=== PATIENT | female | born 1945 | race Caucasian/White ===

== ENCOUNTER 2021-11-02 11:34 | Emergency (ER) | payer OTHER, SELFPAY ==
[2021-11-02] VITALS (44 sets, daily range): BP systolic 91–135; BP diastolic 49–73; PULSE 54–68; RESP 11–23; TEMP 36.3; O2SAT 92–99
--- NOTE | 2021-11-02 11:30 | DI.RAD_ITS ---
Exam(s) XR CHEST 1V IN DI DEPT EXAM: XR CHEST 1V IN DI DEPT CLINICAL HISTORY: CVA/TIA TECHNIQUE: 2D digital imaging was performed of the chest. One image was obtained. An AP view was ob tained. COMPARISON: No exams were available for comparison FINDINGS: MEDIASTINUM: Normal. HEART: Normal. Status post CABG. PULMONARY VASCULATURE: Normal. LUNGS: No focal consolidating infiltrate. There is a rounded density projected over the posterior as pect of the right 9th rib. Its density is is suspicious for an old healed right rib fracture. Right rib films may be obtained for confirmation and to exclude a pulmonary nodule. PLEURAL SPACE: No pleural effusion or pneumothorax. BONE:Within normal limits for the patient's age. Sternal wires are in place. OTHER FINDINGS:Normal. IMPRESSION: No acute pulmonary findings. Incidental Findings DATA REPOSITORY: RADIATION DOSE DELIVERED:
--- NOTE | 2021-11-02 11:30 | RT.EKG_ITS ---
APPROVED REPORT Exam: Resting ECG Reason for Exam: CVA/TIA Patient Location: E HR:59 bpm ECG Measurements Heart Rate 59 AXIS OH 203 P 75 QRSd 70 QRS 24 QT 442 T 39 QTc 439 Conclusion Sinus bradycardia. Anterior Q >40mS
--- NOTE | 2021-11-02 11:45 | DI.CT_ITS ---
Exam(s) CT BRAIN NECK CTA EXAM: CT BRAIN NECK CTA CLINICAL HISTORY: right sided weakness. TECHNIQUE: Imaging Protocol: Axial CT angiography was performed with multi-slice acquisition and mu lti-planar and/or 3D reconstructions. CONTRAST MATERIAL: Intravenous: Omnipaque 350 Contrast volume:85 mL COMPARISON: No exams were available for comparison FINDINGS: CT Head W/O and W: Ventricles and Extra axial spaces: Normal in size and morphology for the patient's age. Hemorrhage: None. Cerebral parenchyma: There are areas of decreased attenuation in the white matter most consistent wit h small vessel ischemic disease. There is an area of encephalomalacia involving the posterior right occipital lobe. No acute territorial infarct is identified. Midline shift: None. Brainstem/Cerebellum: Normal. Calvarium: Normal. Visualized Paranasal sinuses/Mastoids: Clear. Soft Tissues: Unremarkable. Enhancement: Unremarkable. CTA Neck W: Common Carotid: Right: No dissection, occlusion or significant stenosis. Left: No dissection, occlusion or significant stenosis. External Carotid: Right: No occlusion or significant stenosis. Mild atherosclerosis at the origin. Left: No occlusion or significant stenosis. Mild atherosclerosis at the origin. Internal Carotid: Right: No dissection, occlusion or significant stenosis. Atherosclerosis at the origin. Left: No dissection, occlusion or significant stenosis. Atherosclerosis at the origin. Vertebral Artery: Right: No dissection, occlusion or significant stenosis. Left: No evidence of dissection or occlusion. Atherosclerosis of the left vertebral artery distally with less than 50 percent narrowing. Lung Apices: Normal. Bones: There is grade 2 anterolisthesis of C3 on C4. Grade 1 anterolisthesis of C4 on C5. Moderately severe degenerative changes are seen at C5-C6 and C6-C7. There is grade 1 anterolisthesis of C7 on T1. Multilevel facet arthropathy is present. There is bilateral neural foraminal stenosis at C3-C4. Soft Tissues: Normal. Sternal wires are in place. Thyroid gland: Unremarkable. CTA Brain W: Internal Carotid Arteries: Prominent atherosclerosis of the cavernous portions of the internal caroti d arteries. This does result in moderate bilateral cavernous internal carotid artery narrowing. No occlusion is seen. No aneurysm is identified. Anterior Cerebral Arteries: Right: No aneurysm, occlusion or significant stenosis. Left: No aneurysm, occlusion or significant stenosis. Middle Cerebral Arteries: Right: No aneurysm, occlusion or significant stenosis. Left: No aneurysm, occlusion or significant stenosis. Posterior Cerebral Arteries: Right: No aneurysm, occlusion or significant stenosis. Left: No aneurysm, occlusion or significant stenosis. Vertebral Arteries: Right: No aneurysm, occlusion or significant stenosis. Left: No aneurysm, occlusion or significant stenosis. Basilar Artery: No aneurysm, occlusion or significant stenosis. IMPRESSION: 1. Atherosclerosis of the cavernous internal carotid arteries bilaterally resulting in moderate steno sis. No occlusion. 2. No acute intracranial process. Old right occipital infarct. 3. No occlusion or significant stenosis on the CT angiography of the neck. 4. Multilevel degenerative changes in the cervical spine. Multilevel spondylolisthesis in the cervic al spine most marked at the C3-C4 level. RADIATION DOSE DELIVERED: 2,174.62mGy.cm Total DLP DATA REPOSITORY: All CT scans at this facility are submitted to the National Radiology Data Registry (NRDR) Dose Index Registry (DIR) with the [employer] (A[employer]). RADIATION OPTIMIZATION: All CT scans at this facility use at least one of these dose optimization te chniques: automated exposure control; mA and/or kV adjustment per patient size (includes targeted exa ms where dose is matched to clinical indication); or iterative reconstruction.
--- NOTE | 2021-11-02 11:50 | W.ED.GENAD ---
Discharge Plan Disposition Patient Disposition: SNF (LEVEL 1) [facility] Condition: Improving Discharge Details Clinical Impression: Neurological movement disorder Primary Care Provider: Moncho Brooks ED Provider: Gulshan Tracy Home Meds and New Rx's Prescriptions: Continued atorvastatin 80 mg Tablet 80 mg PO DAILY RF: 0 hydrochlorothiazide 50 mg Tablet 50 mg PO DAILY RF: 0 prazosin [Minipress] 1 mg Capsule 1 mg PO DAILY RF: 0 metoprolol succinate 100 mg Tablet Extended Release 24 Hr 100 mg PO DAILY RF: 0 clopidogrel [Plavix] 75 mg Tablet 75 mg PO DAILY RF: 0 levothyroxine 25 mcg Tablet 25 mcg PO DAILY RF: 0 fluoxetine 20 mg Tablet 20 mg PO DAILY RF: 0 aspirin 81 mg Tablet,Chewable 81 mg PO DAILY RF: 0 escitalopram oxalate 20 mg Tablet 20 mg PO DAILY RF: 0 thiamine HCl (vitamin B1) 100 mg Tablet 100 mg PO DAILY RF: 0 magnesium hydroxide 400 mg/5 mL Suspension 400 mg PO DAILY PRNRF: 0 bisacodyl [Dulcolax (bisacodyl)] 10 mg Suppository 10 mg CA DAILY PRNRF: 0 Fleet Enema 19-7 gram/118 mL Enema 118 ml CA ONCE PRNRF: 0 gabapentin 300 mg Capsule 600 mg PO TID RF: 0 hydroxyzine HCl 25 mg Tablet 25 mg PO TID PRNRF: 0 midodrine 2.5 mg Tablet 2.5 mg PO BID RF: 0 melatonin 5 mg Tablet 5 mg PO HS PRNRF: 0 Discharge Instructions Additional Instructions: It is very important that you take your medication as prescribed and stay well-hydrated. Nursing staff please ensure that patient is staying well-hydrated as this may contribute to patient's worsening of symptoms. In today's work-up you had CT imaging of the brain and neck along with laboratory findings and consultation with neurology. They feel that this is a similar episode to what you were admitted for at [facility] with extensive were. It is believed by neurology that the majority of your symptoms are secondary to severe intracranial apical sclerotic disease which may be blood pressure dependent causing symptoms. It is very important that you stay well-hydrated and if symptoms continue your provider should consider change of your blood pressure medications. Feel free to return to the emergency department for any new or significant worsening of symptoms or change in your baseline neurological status. Discharge Data Discharge Date/Time-TO BE ENTERED AT DEPARTURE: 11/02/21 16:38 Medical Decision Making Patient presenting to the emergency department from [facility] via EMS for chief complaint of abnormal body movements on the right side. Reports disease being previously correlated with possible TIA versus CVA that patient was seen at [facility] for. 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 She has ongoing visual issues from a previous CVA. Patient reports that symptoms are worsening especially at rest which is abnormal compared to her baseline which is more with standing. Patient denies any pain or discomfort, headache, chest pain, difficulty breathing. Physical exam shows right-sided weakness but not full pronator drift to bed, abnormal movement that seem to be distractible at times and more focalized to the right side, beyond baseline visual deficits no cranial nerve abnormalities appreciated and normal cardiac and respiratory exam. We will plan on doing labs and advanced imaging for work-up of CVA/TIA. Patient does state that symptoms started approximately 1 hour prior to arrival but I am not sure if she is an appropriate tPA candidate at this time given similar symptoms in the past with not significant worsening to outweigh benefit. We will continue to reassess as time goes on. Also will review recent information from [facility] which patient states that she has admitted to for same symptoms. 1156-reviewed records from [facility] and does seem similar in nature to previous work-up. Only slight difference may be some more appreciated weakness on the right side but otherwise similar in presentation with noted atherosclerosis that is significant and normal EEG. Reviewed labs which are overall unremarkable and patient is anemic at baseline compared to previous tertiary care admission. 1230-patient reassessed and states improvement of abnormal body movement. And otherwise feeling well. 1245-review of CT imaging shows severe atherosclerotic disease otherwise no acute findings. 1320-called and requested consult from [facility] neurology given that patient was admitted there for previous symptoms. 1445-spoke with Dr. Evans with neurology. After full discussion of patient's presentation, laboratory and CT findings, and overall improvement he stated that this seems very similar to previous and very extensive work-up at [facility]. He did not recommend any further interventions except for possible suggestion of monitoring patient's blood pressure as symptoms seem to be secondary to severe atherosclerotic disease and perfusion pressure. Given no further recommendations for treatment and that patient had recently extensive work-up for similar presentation I do feel that patient may be able to safely go home if she is able to ambulate and symptoms are back at baseline. Patient's blood pressure did remain soft in the emergency department so plan to ambulate after 500 mL of NS and will continue to reassess. Patient is agreeable to this plan of care and does state significant improvement at rest. 1555-patient received 500 mL of normal saline and nursing staff was able to ambulate patient without assistance and patient states that she is back to baseline and agrees to wanting to return to rehab facility. Discharge paperwork was prepared. Return precautions were discussed for any change in neurological symptoms and for patient to stay well-hydrated. Imaging Data Radiologic Study: Imaging: X-Ray Radiologist's impression: AP Chest IMPRESSION: No active cardiopulmonary disease. Thank you for allowing us to participate in the care of your patient. 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 No vessel occlusion is seen. There is an old right occipital infarct on imaging of the brain. Thank you for allowing us to participate in the care of your patient. Dictated and Authenticated by: Sanjay Archibald MD [facility] General Mode of arrival: ambulatory. Date/Time Provider Initiated Documentation: 11/02/21 11:39. Limitations to Documentation: no limitations. Information obtained by: patient, EMS and old records reviewed. History of Present Illness 76 year old F presents to the emergency department with the chief complaint of Abnormal arm movements, Quality is described as other (denies pain), and is localized to the right, upper extremity and lower extremity. Patient started experiencing this hour(s) (1 acutely worsening but chronic) and it has been constant. No relieving factors improve symptom(s), Movement worsens symptoms . Patient notes no other symptoms.. Patient did receive the following treatments prior to arrival, none Related Data Home Medications Medication Instructions Recorded Confirmed Fleet Enema 118 ml CA ONCE PRN 11/02/21 11/02/21 aspirin 81 mg PO DAILY 11/02/21 11/02/21 atorvastatin 80 mg PO DAILY 11/02/21 11/02/21 bisacodyl [Dulcolax (bisacodyl)] 10 mg CA DAILY PRN 11/02/21 11/02/21 clopidogrel [Plavix] 75 mg PO DAILY 11/02/21 11/02/21 escitalopram oxalate 20 mg PO DAILY 11/02/21 11/02/21 fluoxetine 20 mg PO DAILY 11/02/21 11/02/21 gabapentin 600 mg PO TID 11/02/21 11/02/21 hydrochlorothiazide 50 mg PO DAILY 11/02/21 11/02/21 hydroxyzine HCl 25 mg PO TID PRN 11/02/21 11/02/21 levothyroxine 25 mcg PO DAILY 11/02/21 11/02/21 magnesium hydroxide 400 mg PO DAILY PRN 11/02/21 11/02/21 melatonin 5 mg PO HS PRN 11/02/21 11/02/21 metoprolol succinate 100 mg PO DAILY 11/02/21 11/02/21 midodrine 2.5 mg PO BID 11/02/21 11/02/21 prazosin [Minipress] 1 mg PO DAILY 11/02/21 11/02/21 thiamine HCl (vitamin B1) 100 mg PO DAILY 11/02/21 11/02/21 Allergies Allergy/AdvReac Type Severity Reaction Status Date / Time No Known Allergies Allergy Unverified 11/02/21 11:41 General Stated Complaint: CVA/TIA ALICE: 2 Review of Systems Constitutional Constitutional: Denies body ache(s), Denies chills, Denies fever(s), Denies headache(s) and Reports weakness (right side) Eyes Eyes: Denies change in vision ENT Ears, Nose, Mouth, and Throat: Denies vertigo, Denies dizziness and Denies headache(s) Cardiovascular Cardiovascular: Denies chest pain, Denies syncope and Denies dyspnea Respiratory Respiratory: Denies dyspnea Gastrointestinal Gastrointestinal: Denies abdominal pain, Denies nausea and Denies vomiting Neurologic Neurologic: Reports as per HPI, Reports abnormal movements, Denies abnormal speech, Denies vertigo, Denies dizziness, Denies syncope, Denies headache(s), Denies sensory deficit, Denies paresthesias (no change from baseling), Reports tremor(s) and Reports weakness (right side) PFSH All Active Problems (Updated 11/02/21 @ 16:03 by Gulshan Tracy NP) Neurological movement disorder (Acute) Social History Smoking/Tobacco Use Status: Current-Occasional Tobacco Type: cigarettes Smoking risk assessment performed?: Yes Substance use type: marijuana Exam Const General: cooperative and no acute distress Orientation: alert, awake, oriented to person and oriented to place [facility] Head: normal to inspection Ears: hearing grossly normal bilaterally Mouth: oral mucosae normal and oral mucosa abnormal other (dry) Throat: posterior oropharynx normal Eyes Visual Dawkins: normal visual dawkins by confrontation Alignment and Position: alignment normal Periorbital: periorbital findings normal Eyelids: eyelids normal Pupils: not reactive EOM: EOM intact bilaterally Neck Neck: normal visual inspection, full ROM and no meningeal signs Resp Effort & Inspection: normal respiratory effort and able to speak in complete sentences Auscultation: clear to auscultation bilaterally Cardio Rate: regular rate Rhythm: regular rhythm Heart Sounds: S1 normal and S2 normal Neuro General: patient alert, patient awake, patient oriented x3, gait normal, tone normal, moves all extremities, normal light touch, pain and propioception, no meningeal signs, CN's II-XI intact bilaterally (With patient reporting decreased vision at baseline no visual field loss), deep tendon reflexes 2+ bilaterally and not confused Cognition: normal cognition Speech: speech normal Motor: movement abnormality noted other (Abnormal movement of right and left upper extremity specifically with movement, appear to be distractible), muscle tone abnormal and other (Right-sided weakness and minor drift) Sensory Exam: other (Right-sided deficits noted in arm. Patient reports heavy dull sensation) Course Vital Signs Vital signs: Vital Signs Temperature 36.3 C L 11/02/21 11:35 Pulse 64 11/02/21 11:35 Respiratory Rate 15 11/02/21 11:35 Pulse Oximetry 98 11/02/21 11:35 Temperature 36.3 C L 11/02/21 11:35 Temperature Source Skin 11/02/21 11:35 Pulse 64 11/02/21 11:35 Respiratory Rate 15 11/02/21 11:35 Respiratory Effort 11/02/21 11:35 Blood Pressure Position Supine 11/02/21 11:35 Pulse Oximetry 98 11/02/21 11:35 Oxygen Delivery Method Room Air 11/02/21 11:35 Oxygen Flow Rate 0 11/02/21 11:35 Pain Level 0 11/02/21 11:35
[2021-11-02 11:52] LABS: Abs Immature Grans 0.01 10^3/uL (0.0-0.06); Absolute Basophil Count 0.05 10^3/uL (0.0-0.2); Absolute Eosinophil Count 0.26 10^3/uL (0.0-0.7); Absolute Lymphocyte Count 1.04 10^3/uL (1.2-3.4); Absolute Monocyte Count 0.51 10^3/uL (0.1-0.8); Absolute Neutrophil Count 4.01 10^3/uL (1.2-6.7); Basophils % 0.9; Eosinophils % 4.4; HCT 32.1 % (36.0-46.0); HGB 10.3 g/dL (11.2-15.7); Immature Grans % 0.2; Lymphocytes % 17.7; MCH 31.2 pg (27.0-33.0); MCHC 32.1 % (32.0-36.0); MCV 97.3 fL (80-95); MPV 9.9 fL (8.0-11.0); Monocytes % 8.7; Neutrophils % 68.1; Nucleated RBC 0 %; Platelet Count 286 10^3/uL (130-400); RDW 14.4 % (11.7-14.6); RDW-SD 51.8 fL; WBC 5.88 10^3/uL (4.4-10.8)
[2021-11-02 12:08] LABS: ALT 30 U/L (14-59); AST 21 U/L (15-37); Albumin 3.5 g/dL (3.4-5.0); Alkaline Phosphatase 109 U/L (46-116); Anion Gap 6.4 mmol/L (3-11); BUN 18 mg/dL (7-18); Bilirubin, Total 0.5 mg/dL (0.2-1.0); CO2 29.6 mmol/L (21.0-32.0); CREATININE 0.8 mg/dL (0.55-1.02); Calcium 8.7 mg/dL (8.5-10.1); Chloride 102 mmol/L (98-107); Glucose 96 mg/dL (74-106); Magnesium 1.7 mg/dL (1.8-2.4); Potassium 3.8 mmol/L (3.5-5.1); Sodium 138 mmol/L (136-145); Total Protein 6.8 g/dL (6.4-8.2); Troponin I < 50 ng/L (<or=60)
[2021-11-02] MEDS: Omnipaque 350 MG/ML 100 ML BTL IV (12:26)
--- NOTE | 2021-11-02 12:27 | DI.VRAD_ITS ---
PROCEDURE INFORMATION: Exam: CT Angiography Head With Contrast, Arteriography Exam date and time: 11/02/2021 11:49 AM Age: 76 years old Clinical indication: Other: Right sided weakness TECHNIQUE: Imaging protocol: Computed tomography angiography of the head with contrast. Exam focused on the arteries. 3D rendering (Not supervised by radiologist): MIP and/or 3D reconstructed images were created by the technologist. Radiation optimization: All CT scans at this facility use at least one of these dose optimization techniques: automated exposure control; mA and/or kV adjustment per patient size (includes targeted exams where dose is matched to clinical indication); or iterative reconstruction. Contrast material: OMNIPAQUE 350; Contrast volume: 85 ml; Contrast route: INTRAVENOUS (IV); COMPARISON: No relevant prior studies available. FINDINGS: ANTERIOR CIRCULATION: Right internal carotid artery: There is heavy calcification of the cavernous carotid. This produces mild to moderate narrowing of the lumen. Right middle cerebral artery: Unremarkable. No occlusion or significant stenosis. No aneurysm. Right anterior cerebral artery: Unremarkable. No occlusion or significant stenosis. No aneurysm. Left internal carotid artery: There is heavy calcification of the cavernous carotid producing at least mild to moderate luminal narrowing. Left middle cerebral artery: Unremarkable. No occlusion or significant stenosis. No aneurysm. Left anterior cerebral artery: Unremarkable. No occlusion or significant stenosis. No aneurysm. POSTERIOR CIRCULATION: Right vertebral artery: Unremarkable. No occlusion or significant stenosis. No aneurysm. Left vertebral artery: Unremarkable. No occlusion or significant stenosis. No aneurysm. Basilar artery: Unremarkable. No occlusion or significant stenosis. No aneurysm. Right posterior cerebral artery: Unremarkable. No occlusion or significant stenosis. No aneurysm. Left posterior cerebral artery: Unremarkable. No occlusion or significant stenosis. No aneurysm. Brain: The brain shows an area of hypo density in the right occipital lobe representing infarct most likely chronic. No definite acute infarct is seen at this time. There is no intra-axial or extra-axial mass or hemorrhage. There are only minimal involutional changes. No hyperdense vessel is seen. Cerebral ventricles: No ventriculomegaly. Bones/joints: Unremarkable. No acute fracture. Soft tissues: Unremarkable. 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 No vessel occlusion is seen. There is an old right occipital infarct on imaging of the brain. Dictated and Authenticated by: Sanjay Archibald MD. Ordering:HOLA Gaffney MD
[2021-11-02] MEDS: Normal Saline Flush 10 ML SYR IVP (12:28)
--- NOTE | 2021-11-02 12:28 | DI.VRAD_ITS ---
PROCEDURE INFORMATION: Exam: XR Chest Exam date and time: 11/02/2021 11:40 AM Age: 76 years old Clinical indication: Other: Cva/tia TECHNIQUE: Imaging protocol: XR of the chest. Views: 1 view. COMPARISON: No relevant prior studies available. FINDINGS: Tubes, catheters and devices: Sternal wires are present. Lungs: Lungs are clear with no infiltrate or nodule. Pleural spaces: Unremarkable. No pleural effusion. No pneumothorax. Heart/Mediastinum: Cardiomediastinal silhouette is normal. Vasculature: Aorta is atherosclerotic. Bones/joints: Old healed right-sided rib fractures are noted. IMPRESSION: No active cardiopulmonary disease. Dictated and Authenticated by: Sanjay Archibald MD. Ordering:HOLA Gaffney MD
[2021-11-02 12:42] LABS: Bilirubin Negative (Negative); Blood Trace-intact (Negative); Clarity Clear (Clear); Glucose Negative (Negative); Ketones Negative (Negative); Leukocyte Esterase Moderate (Negative); Nitrite Negative (Negative); Urobilinogen 0.2 EU/dL (Up TO 0.2); pH 7.5 (5-8)
[2021-11-02 12:52] LABS: Bacteria Few HPF (Negative); C & S Indicated? No/Sq. Contamination; Casts Negative LPF (Negative); Crystals Negative HPF (Negative); Epithelial Cells Many HPF (Negative); Mucus Moderate (Negative)
[2021-11-02] MEDS: Normal Saline 500 ML IV (15:00)
--- NOTE | 2021-11-02 16:19 | NUR.NOTE ---
Nursing Note APPROVED BY [employer] TELEPH[employer] SWITCHBOARD OPERATOR @ [id number] FOR PT TO BE TRANSPORTED BACK BY [facility].OLGA GONZALES
== END 2021-11-02 16:38 | disposition skilled nursing facility (03) ==
PROVIDERS: Emergency Provider Nurse Practitioner Family; PCP Family Medicine
DX: G25.89 Other specified extrapyramidal and movement disorders (principal); I69.398 Other sequelae of cerebral infarction; G81.91 Hemiplegia, unspecified affecting right dominant side; E03.9 Hypothyroidism, unspecified; I65.23 Occlusion and stenosis of bilateral carotid arteries; H53.8 Other visual disturbances
CPT/HCPCS: 36415; 36416; 70496; 70498; 80053; 82962; 93005; 96360; 99285; 71045; 81003; 81015; 83735; 84484; 85025; 93010; 99284; J3490

== ENCOUNTER 2021-11-09 20:46 | Outpatient (REF) | payer OTHER, SELFPAY ==
[2021-11-09 20:59] LABS: Abs Immature Grans 0.01 10^3/uL (0.0-0.06); Absolute Basophil Count 0.05 10^3/uL (0.0-0.2); Absolute Eosinophil Count 0.28 10^3/uL (0.0-0.7); Absolute Lymphocyte Count 1.66 10^3/uL (1.2-3.4); Absolute Monocyte Count 0.58 10^3/uL (0.1-0.8); Absolute Neutrophil Count 2.92 10^3/uL (1.2-6.7); Basophils % 0.9; Eosinophils % 5.1; HCT 30.1 % (36.0-46.0); HGB 9.6 g/dL (11.2-15.7); Immature Grans % 0.2; Lymphocytes % 30.2; MCH 31.4 pg (27.0-33.0); MCHC 31.9 % (32.0-36.0); MCV 98.4 fL (80-95); MPV 10.5 fL (8.0-11.0); Monocytes % 10.5; Neutrophils % 53.1; Nucleated RBC 0 %; Platelet Count 274 10^3/uL (130-400); RBC 3.06 10^6/uL (3.93-5.22); RDW 14.8 % (11.7-14.6)
[2021-11-09 21:26] LABS: ALT 24 U/L (14-59); AST 11 U/L (15-37); Albumin 3.3 g/dL (3.4-5.0); Alkaline Phosphatase 118 U/L (46-116); Anion Gap 7.7 mmol/L (3-11); BUN 19 mg/dL (7-18); Bilirubin, Total 0.2 mg/dL (0.2-1.0); CO2 28.3 mmol/L (21.0-32.0); Calcium 8.6 mg/dL (8.5-10.1); Calculated LDL 66 mg/dL (<100); Chloride 104 mmol/L (98-107); Cholesterol 138 mg/dL (<200); Estimated GFR 54.05 (mL/min/1.73m2); Glucose 114 mg/dL (74-106); HDL Cholesterol 50 mg/dL (40-60); Potassium 4.4 mmol/L (3.5-5.1); Sodium 140 mmol/L (136-145); Triglyceride 114 mg/dL (<150)
[2021-11-09 21:35] LABS: Bilirubin, Direct 0.1 mg/dL (0.0-0.2)
== END 2021-11-09 20:47 | disposition home or self-care (01) ==
LOC: LBN 20:46
PROVIDERS: PCP Family Medicine; Visit Provider Family Medicine
DX: G45.9 Transient cerebral ischemic attack, unspecified (principal); F10.10 Alcohol abuse, uncomplicated
CPT/HCPCS: 80048; 80061; 80076; 85025